=== PATIENT | female | born 1965 | race Caucasian/White ===

== ENCOUNTER → 2024-07-13 13:10 | Outpatient (REF) | payer MEDICARE, OTHER, SELFPAY | LOC: WDC 13:10 | PROVIDERS: ATTENDING PHYSICIAN Nurse Practitioner Family; FAMILY PHYSICIAN Family Medicine | DX: Z12.31 Encounter for screening mammogram for malignant neoplasm of breast (principal) | CPT/HCPCS: 77063; 77067 ==

== ENCOUNTER → 2025-01-21 10:15 | Outpatient (REF) | payer MEDICARE, OTHER, SELFPAY | LOC: WDC 10:15 | PROVIDERS: ATTENDING PHYSICIAN Nurse Practitioner Family; FAMILY PHYSICIAN Family Medicine | DX: R92.8 Other abnormal and inconclusive findings on diagnostic imaging of breast (principal) | CPT/HCPCS: 76642 ==